=== PATIENT | male | born 1950 | race Caucasian/White ===

== ENCOUNTER → 2022-05-26 12:20 | Outpatient (CLI) | payer MEDICARE, SELFPAY ==
--- NOTE | ~2022-05-26 | US_ITS ---
EXAMINATION: US scrotum doppler DATE: 05/26/2022 13:08 INDICATION: Left testicular pain TECHNIQUE: Testicular sonogram utilizing grayscale and Doppler COMPARISON: None. FINDINGS: The right testis measures 4.3 x 2.3 x 3.2 cm. The left testis measures 4 x 2.1 x 3.1 cm. Th ere is normal vascular flow to both testes. The right epididymis contains a 2 x 1.4 x 1.6 cm cyst or spermatocele. The left epididymis is normal with normal vascular flow. There is no varicocele or hydr ocele. IMPRESSION: 1. No sonographic correlate for the patient's symptoms. 2. Cyst or spermatocele of the right epididymis measuring up to 2 cm. Reviewed, dictated and finalized at location B. [facility]
== END ==
PROVIDERS: PCP Family Medicine; Visit Provider Urology
DX: N50.812 Left testicular pain (principal); R93.89 Abnormal findings on diagnostic imaging of other specified body structures
CPT/HCPCS: 76870; 93976